=== PATIENT | male | born 1975 | race Caucasian/White ===

== ENCOUNTER 2016-09-29 19:31 | Observation (INO) | payer MEDICARE ==
[2016-09-29 19:31] VITALS: BMI 209.6
[2016-09-29] MEDS ORDERED: Sodium Chloride 0.9% 1,000 ML IV STA (21:29)
--- NOTE | 2016-09-29 21:51 | ED PDOC ---
HPI: Headache Time Seen by Provider: 09/29/16 20:47 Chief Complaint (Nursing): Fever Chief Complaint (Provider): headache History Per: Patient History/Exam Limitations: no limitations Onset/Duration Of Symptoms: Days (x 3) Current Symptoms Are (Timing): Still Present Additional Complaint(s): Qian Cortez is a 40 year old male, with a previous medical history of cardiac stents and HIV, who presents to the ED with complaints of a headache associated with chest pain ongoing for the past 3 days secondary to injecting crystal meth. Patient reports to also doing cocaine a week ago. Patient [place] [facility] [place] he was placed in a psych unit after being angry with his mother then discharged. Patient denies any fever, chills, neck stiffness, shortness of breath, suicidal or homicidal ideation. Patient reports CD4 levels were 1200. PMD: Rhina Salamanca MD Past Medical History Reviewed: Historical Data, Nursing Documentation, Vital Signs Vital Signs: Last Vital Signs Temp 98.2 F 09/29/16 19:39 Pulse 121 H 09/29/16 19:39 Resp 16 09/29/16 19:39 BP 136/94 H 09/29/16 19:39 Pulse Ox 100 09/29/16 19:39 - Medical History PMH: Anxiety, Bipolar Disorder, CAD, Depression, HIV, HTN, Hypercholesterolemia , Post Traumatic Stress Disorder Denies: Diabetes, Hepatitis, Chronic Kidney Disease, Seizures, Sexually Transmitted Disease - Surgical History Surgical History: Coronary Stent (x3) Denies: Pacemaker - Family History Family History: States: Unknown Family Hx - Social History Drugs: Cannabis, Cocaine, Methamphetamine - Immunization History Hx Tetanus Toxoid Vaccination: No Hx Influenza Vaccination: No Hx Pneumococcal Vaccination: No - Home Medications Home Medications: Ambulatory Orders Medication Instructions Recorded Aspirin [Ecotrin] 81 mg PO DAILY 07/06/15 Atorvastatin [Lipitor] 40 mg PO DAILY 07/06/15 Emtricita/Rilpivirine/Tenof Df 1 tab PO DAILY 07/06/15 [Complera Tablet] Escitalopram [Lexapro] 10 mg PO DAILY #30 tab 09/30/16 - Allergies Allergies/Adverse Reactions: Allergies Allergy/AdvReac Type Severity Reaction Status Date / Time No Known Allergies Allergy Verified 09/29/16 19:39 Review of Systems ROS Statement: Except As Marked, All Systems Reviewed And Found Negative Constitutional: Negative for: Fever, Chills Cardiovascular: Positive for: Chest Pain Respiratory: Negative for: Shortness of Breath Musculoskeletal: Negative for: Neck Pain Neurological: Positive for: Headache Physical Exam - Reviewed Nursing Documentation Reviewed: Yes Vital Signs Reviewed: Yes - Physical Exam Appears: Positive for: Well, Non-toxic, No Acute Distress Head Exam: Positive for: ATRAUMATIC, NORMAL INSPECTION, NORMOCEPHALIC Skin: Positive for: Normal Color, Warm, DRY Eye Exam: Positive for: EOMI, Normal appearance, PERRL ENT: Positive for: Normal ENT Inspection Neck: Positive for: Normal, Painless ROM Cardiovascular/Chest: Positive for: Regular Rate, Rhythm, Tachycardia Respiratory: Positive for: CNT, Normal Breath Sounds Gastrointestinal/Abdominal: Positive for: Normal Exam, Bowel Sounds, Soft Back: Positive for: Normal Inspection Extremity: Positive for: Normal ROM Neurologic/Psych: Positive for: Alert, Oriented - Laboratory Results Result Diagrams: 09/29/16 21:40 09/29/16 21:40 - ECG Interpretation Of ECG: NSR @ 75, short NV, no ST-T changes. O2 Sat by Pulse Oximetry: 100 (RA) Pulse Ox Interpretation: Normal - Radiology X-Ray: Read By Radiologist X-Ray Interpretation: No Acute Disease - CT Scan/US CT head Other Rad Studies (CT/US): Radiology Report Reviewed (No acute intracranial abnormality.) Medical Decision Making Medical Decision Making: Initial Impression: headache and chest pain Initial Plan: * CT head w/o contrast * EKG * acetaminophen * alcohol serum * urine drug screen * slicylate * troponin I * urine dipstick * partial thromboplastin time * prothrombin time * CXR * IV NS 1,000 ml at 1,000 ml/hr * urinalysis * reevaluation Scribe Attestation: Documented by Akosua Shine, acting as a scribe for Blaine Hernandez MD. Provider Scribe Attestation: All medical record entries made by the Scribe were at my direction and personally dictated by me. I have reviewed the chart and agree that the record accurately reflects my personal performance of the history, physical exam, medical decision making, and the department course for this patient. I have also personally directed, reviewed, and agree with the discharge instructions and disposition. Disposition - Clinical Impression Clinical Impression: Chest pain - Disposition Disposition Time: 22:51 Condition: STABLE - Pt Status Changed To: Hospital Disposition Of: Observation - POA Present On Arrival: None
[2016-09-29 21:54] LABS: BASO # 0.1 K/uL (0.0-0.2); BASO % 0.9 % (0.0-2.0); EOS # 0.2 K/uL (0.0-0.7); EOS % 2.3 % (0.0-4.0); HEMATOCRIT 45.2 % (35.0-51.0); LYMPH # 3.3 K/uL (1.0-4.3); LYMPH % 36.2 % (20.0-40.0); MEAN CELL VOLUME 92.9 fl (80.0-94.0); MEAN CORPUSCULAR HEMOGLOBIN 31.8 pg (27.0-31.0); MEAN CORPUSCULAR HGB CONC 34.3 g/dL (33.0-37.0); MEAN PLATELET VOLUME 8.9 fl (7.2-11.7); MONO # 0.8 K/uL (0.0-0.8); NEUT # 4.7 K/uL (1.8-7.0); NEUT % 51.6 % (50.0-75.0); NRBC % 0.1 % (0.0-0.0); RED CELL DISTRIBUTION WIDTH 13.5 % (11.5-14.5); WHITE BLOOD COUNT 9.2 K/uL (4.8-10.8)
[2016-09-29 22:09] LABS: PARTIAL THROMBOPLASTIN TIME 27.9 SECONDS (23.3-32.5)
[2016-09-29] MEDS ORDERED: Nitroglycerin 2% 15 INCH/30 GM TUBE TOP STA (22:16)
[2016-09-29 22:18] LABS: ALB/GLOB RATIO 1.5 (1.0-2.1); ALCOHOL SERUM < 10 mg/dl (0-10); ALKALINE PHOSPHATASE 55 U/L (38-126); ALT/SGPT 49 U/L (21-72); AST/SGOT 94 U/L (17-59); BILIRUBIN,TOTAL 2.4 mg/dl (0.2-1.3); BLOOD UREA NITROGEN 30 mg/dl (9-20); CALCIUM 9.6 mg/dL (8.4-10.2); CARBON DIOXIDE 20 mmol/L (22-30); CHLORIDE 101 mmol/L (98-107); GFR AFRICAN-AMERICAN > 60; GLUCOSE,RANDOM 80 mg/dL (75-110); POTASSIUM 4.3 MMOL/L (3.6-5.0); SODIUM 135 mmol/l (132-148); TOTAL PROTEIN 8.8 G/DL (6.3-8.2)
[2016-09-29 22:51] LABS: RBC URINE 10 /hpf (0-3); URINE BACTERIA RARE (<OCC); URINE BILIRUBIN NEGATIVE (NEGATIVE); URINE BLOOD NEGATIVE (NEGATIVE); URINE COLOR YELLOW (YELLOW); URINE GLUCOSE (UA) NEG (Normal); URINE KETONE 20 mg/dL (NEGATIVE); URINE LEUKOCYTE ESTERASE NEG Leu/uL (Negative); URINE PROTEIN 30 mg/dL (NEGATIVE); URINE UROBILINOGEN 0.2-1.0 mg/dL (0.2-1.0); WBC URINE 1 /hpf (0-5)
--- NOTE | 2016-09-29 23:01 | CT ---
EXAM: CT Head Without Intravenous Contrast CLINICAL HISTORY: 40 years old, male; Pain; Headache; Headache not specified; Additional info: SKYEzra Justice phy. Doc. With request TECHNIQUE: Axial computed tomography images of the head/brain without intravenous contrast. This CT exam was performed using one or more of the following dose reduction techniques: automated exposure control, adjustment of the mA and/or kV according to patient size, and/or use of iterative reconstruction technique. Coronal and sagittal reformatted images were created and reviewed. EXAM DATE/TIME: 09/29/2016 9:29 PM COMPARISON: There are no prior studies for comparison. FINDINGS: Brain: Ventricles are normal in size and configuration. There is no midline shift. There is mild prominence of sulci and gyri. There are no intra-axial or extra-axial mass lesions or areas of hemorrhage. There are no abnormal fluid collections. Veloz-white differentiation is maintained. Ventricles: See above. Bones: Cranial vault is intact. Soft tissues: unremarkable Sinuses: There is no acute sinusitis. Ears and mastoids: Middle ears and mastoids are unremarkable Orbits: Orbital contents are unremarkable. IMPRESSION: No acute intracranial abnormality
--- NOTE | 2016-09-29 23:27 | CP.PCM.HP ---
History of Present Illness - History of Present Illness History of Present Illness: Pt is a 40 year old male, with medical history of cardiac stents and HIV, who presents to the ED with complaints of a headache associated with chest pain ongoing for the past 3 days secondary to injecting crystal meth. Patient reports to also doing cocaine a week ago. Patient reports being seen [place] [facility] [place] where he was placed in a psych unit after being angry with his mother then discharged.Pt reports no labs where done at [facility] and he was not satisfied with their workup so decided to come to [place] for further management. Patient denies any fever, chills, neck stiffness, shortness of breath, suicidal or homicidal ideation. Patient reports CD4 levels were 1200; however on 09/15 HIV 1 RNS PCR was undetectable per chart review PCP- Dr. Nye Present on Admission - Present on Admission Any Indicators Present on Admission: No Review of Systems - Review of Systems All systems: reviewed and no additional remarkable complaints except Review of Systems: per HPI Past Patient History - Infectious Disease Hx of Infectious Diseases: None - Tetanus Immunizations Tetanus Immunization: Unknown - Past Social History Drugs: Cannabis, Cocaine, Methamphetamine - CARDIAC Hx Hypercholesterolemia: Yes Hx Hypertension: Yes Hx Pacemaker: No - PULMONARY Hx Tuberculosis: No - NEUROLOGICAL Hx Seizures: No - HEENT Hx HEENT Problems: No - RENAL Hx Chronic Kidney Disease: No - ENDOCRINE/METABOLIC Hx Endocrine Disorders: No - HEMATOLOGICAL/ONCOLOGICAL Hx Human Immunodeficiency Virus (HIV): Yes - INTEGUMENTARY Other/Comment: herpes - MUSCULOSKELETAL/RHEUMATOLOGICAL Hx Musculoskeletal Disorders: Yes Hx Back Pain: Yes Hx Falls: Yes Hx Herniated Disk: Yes Other/Comment: PINCHED NERVE - GASTROINTESTINAL Hx Gastrointestinal Disorders: No - GENITOURINARY/GYNECOLOGICAL Hx Sexually Transmitted Disorders: No - PSYCHIATRIC Hx Anxiety: Yes Hx Bipolar Disorder: Yes Hx Depression: Yes Hx Post Traumatic Stress Disorder: Yes - SURGICAL HISTORY Hx Coronary Stent: Yes (x3) - ANESTHESIA Hx Anesthesia: Yes Hx Anesthesia Reactions: No Hx Malignant Hyperthermia: No Meds Allergies/Adverse Reactions: Allergies Allergy/AdvReac Type Severity Reaction Status Date / Time No Known Allergies Allergy Verified 09/29/16 19:39 Physical Exam - Constitutional Appears: Non-toxic, No Acute Distress - Head Exam Head Exam: NORMOCEPHALIC - Eye Exam Eye Exam: Normal appearance, PERRL Pupil Exam: NORMAL ACCOMODATION - ENT Exam ENT Exam: Mucous Membranes Moist - Respiratory Exam Respiratory Exam: Clear to Auscultation Bilateral, NORMAL BREATHING PATTERN. absent: Rhonchi, Wheezes - Cardiovascular Exam Cardiovascular Exam: REGULAR RHYTHM, +S1, +S2 - GI/Abdominal Exam GI & Abdominal Exam: Normal Bowel Sounds, Soft. absent: Tenderness - Extremities Exam Extremities exam: Negative for: calf tenderness, pedal edema - Neurological Exam Neurological exam: Alert, CN II-XII Intact, Oriented x3 - Skin Skin Exam: Normal Color Results - Vital Signs Recent Vital Signs: Last Vital Signs Temp 98.2 F 09/29/16 19:39 Pulse 121 H 09/29/16 19:39 Resp 16 09/29/16 19:39 BP 136/94 H 09/29/16 19:39 Pulse Ox 100 09/29/16 22:25 - Labs Result Diagrams: 09/29/16 21:40 09/29/16 21:40 Labs: Laboratory Results - last 24 hr 09/29/16 09/29/16 09/29/16 21:40 21:40 21:40 WBC 9.2 RBC 4.87 Hgb 15.5 Hct 45.2 MCV 92.9 D MCH 31.8 H MCHC 34.3 RDW 13.5 Plt Count 232 MPV 8.9 Neut % (Auto) 51.6 Lymph % (Auto) 36.2 Ness % (Auto) 9.0 Eos % (Auto) 2.3 Baso % (Auto) 0.9 Neut # 4.7 Lymph # 3.3 Ness # 0.8 Eos # 0.2 Baso # 0.1 PT 12.0 H INR 1.15 H APTT 27.9 Sodium 135 Potassium 4.3 Chloride 101 Carbon Dioxide 20 L Anion Gap 18 BUN 30 H Creatinine 1.0 Est GFR ( Amer) > 60 Est GFR (Non-Af Amer) > 60 Random Glucose 80 Calcium 9.6 Total Bilirubin 2.4 H AST 94 H D ALT 49 Alkaline Phosphatase 55 Troponin I 0.0190 Total Protein 8.8 H Albumin 5.3 H Globulin 3.5 Albumin/Globulin Ratio 1.5 Urine Color Urine Clarity Urine pH Ur Specific [place] Urine Protein Urine Glucose (UA) Urine Ketones Urine Blood Urine Nitrate Urine Bilirubin Urine Urobilinogen Ur Leukocyte Esterase Urine RBC (Auto) Urine Microscopic WBC Ur Squamous Epith Cells Urine Bacteria Salicylates Urine Opiates Screen Urine Methadone Screen Acetaminophen Ur Barbiturates Screen Ur Phencyclidine Scrn Ur Amphetamines Screen U Benzodiazepines Scrn U Oth Cocaine Metabols U Cannabinoids Screen Alcohol, Quantitative < 10 09/29/16 09/29/16 09/29/16 21:40 22:32 22:40 WBC RBC Hgb Hct MCV MCH MCHC RDW Plt Count MPV Neut % (Auto) Lymph % (Auto) Ness % (Auto) Eos % (Auto) Baso % (Auto) Neut # Lymph # Ness # Eos # Baso # PT INR APTT Sodium Potassium Chloride Carbon Dioxide Anion Gap BUN Creatinine Est GFR ( Amer) Est GFR (Non-Af Amer) Random Glucose Calcium Total Bilirubin AST ALT Alkaline Phosphatase Troponin I Total Protein Albumin Globulin Albumin/Globulin Ratio Urine Color Yellow Urine Clarity Clear Urine pH 6.0 Ur Specific [place] 1.031 H Urine Protein 30 Urine Glucose (UA) Neg Urine Ketones 20 Urine Blood Negative Urine Nitrate Negative Urine Bilirubin Negative Urine Urobilinogen 0.2-1.0 Ur Leukocyte Esterase Neg Urine RBC (Auto) 10 H Urine Microscopic WBC 1 Ur Squamous Epith Cells < 1 Urine Bacteria Rare Salicylates < 1.0 Urine Opiates Screen Negative Urine Methadone Screen Negative Acetaminophen < 10.0 L Ur Barbiturates Screen Negative Ur Phencyclidine Scrn Negative Ur Amphetamines Screen Positive H U Benzodiazepines Scrn Positive H U Oth Cocaine Metabols Negative U Cannabinoids Screen Positive H Alcohol, Quantitative Assessment & Plan - Assessment and Plan (Free Text) Assessment: 40 y/o male with history of cardiac stents and HIV being admitted for chest pain induced by drug use; rule out ACS Plan: Chest pain r/o ACS f/u trops X2 F/u repeat EKG in the morning Pt already on aspirin monitor HIV Home medication resumed, not formulary but pt has it with him Consider obtaining Cd4 count if pt is not discharged in the morning Monitor Home meds resumed Diet - Heart Healthy DVT prophylaxis- Lovenox 40mg SC
--- NOTE | 2016-09-30 08:36 | CARD ---
APPROVED REPORT EKG Measurement Heart [id number] ID [id number] <Conclusion> Sinus rhythm with sinus arrhythmia with short ID Otherwise normal ECG
[2016-09-30] MEDS ORDERED: Enoxaparin 40 mg Syringe SC SCH (09:00)
[2016-09-30] MEDS ORDERED: TENOF DF PO SCH (09:00)
[2016-09-30] MEDS ORDERED: EMTRICITA PO SCH (09:00)
[2016-09-30] MEDS ORDERED: RILPIVIRINE PO SCH (09:00)
[2016-09-30] MEDS ORDERED: Lidocaine 5% Patch TD SCH (09:15)
--- NOTE | 2016-09-30 10:47 | RAD ---
HISTORY: CP COMPARISON: No prior. FINDINGS: LUNGS: No active pulmonary disease. PLEURA: No significant pleural effusion identified, no pneumothorax apparent. CARDIOVASCULAR: Normal. OSSEOUS STRUCTURES: No significant abnormalities. VISUALIZED UPPER ABDOMEN: Normal. OTHER FINDINGS: None. IMPRESSION: No active disease.
--- NOTE | 2016-09-30 13:34 | CP.PCM.CON ---
History of Present Illness - History of Present Illness History of Present Illness: Psychiary consult for anxiety and "anger problems" CC: "I get depressed" HPI: 40 yo male w/ h/o HIV, MN, HTN, admitted to medicine for evaluation of headache and chest pain in the context of methamphetamine use, also reports a history of depression and anxiety. +Intermittent feelings of depression and anxiety. He states that his methamphetamine use is under control and doesn't believe he is addicted to it. He denies AH/VH/SI/HI/paranoia/delusions/giuseppe. He reports that Lexapro has been helpful for him in the past and he is interested in restarting this medication. Patient counseled on how substance abuse can affect his mood and cause psychotic symptoms. He reports "anger problems" stating he goes from 0 - 10 quickly for unknown reason, when asked if this could be related to his methamphetamine use, he did not think so. Past psych: Several admissions, diagnosed with depression vs bipolar II disorder in the past. 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 Rents a room, but was recently locked out of that, so likely homeless. +Marijuana, +Methamphetamine abuse. Denies frequent ETOH use. On SSD for HIV. from his in 2009, no children. MSE: A + O x 3, calm, cooperative, good eye contact, thought process-linear/ coherent, thought content- no delusions, no ah/vh/si/si. mood "depressed", affect- broad/full range, able to brighten and laugh. poor insight/judgment. fair impulse control. Impression: 40 yo male w/ h/o HIV, MN, HTN, admitted to medicine for evaluation of headache and chest pain in the context of methamphetamine use, also reports a history of depression and anxiety, now reporting depressed mood and anxiety due to his many social stressors including lack of home. Patient has poor insight into his substance abuse. Dx: Mood disorder unspecified, r/o substance induced mood disorder; Methamphetamine/Marijuana/Benzodiazepine Abuse. -Start Lexapro 10 mg PO Daily -Outpatient psychiatric follow-up -No acute inpatient psychiatric admission indicated at this time -Patient may be going from hospital to hospital for the secondary gain of housing Past Patient History - Infectious Disease Hx of Infectious Diseases: None - Tetanus Immunizations Tetanus Immunization: Unknown - Past Social History Drugs: Cannabis, Cocaine, Methamphetamine - CARDIAC Hx Hypercholesterolemia: Yes Hx Hypertension: Yes Hx Pacemaker: No - PULMONARY Hx Tuberculosis: No - NEUROLOGICAL Hx Seizures: No - HEENT Hx HEENT Problems: No - RENAL Hx Chronic Kidney Disease: No - ENDOCRINE/METABOLIC Hx Endocrine Disorders: No - HEMATOLOGICAL/ONCOLOGICAL Hx Human Immunodeficiency Virus (HIV): Yes - INTEGUMENTARY Other/Comment: herpes - MUSCULOSKELETAL/RHEUMATOLOGICAL Hx Musculoskeletal Disorders: Yes Hx Back Pain: Yes Hx Falls: Yes Hx Herniated Disk: Yes Other/Comment: PINCHED NERVE - GASTROINTESTINAL Hx Gastrointestinal Disorders: No - GENITOURINARY/GYNECOLOGICAL Hx Sexually Transmitted Disorders: No - PSYCHIATRIC Hx Anxiety: Yes Hx Bipolar Disorder: Yes Hx Depression: Yes Hx Post Traumatic Stress Disorder: Yes - SURGICAL HISTORY Hx Coronary Stent: Yes (x3) - ANESTHESIA Hx Anesthesia: Yes Hx Anesthesia Reactions: No Hx Malignant Hyperthermia: No Meds Allergies/Adverse Reactions: Allergies Allergy/AdvReac Type Severity Reaction Status Date / Time No Known Allergies Allergy Verified 09/29/16 19:39 - Medications Medications: Current Medications Aspirin (Ecotrin) 81 mg PO DAILY@2230 [facility] Atorvastatin Calcium (Lipitor) 40 mg PO DAILY [facility] Last Admin: 09/30/16 09:35 Dose: 40 mg Enoxaparin Sodium (Lovenox) 40 mg SC DAILY [facility] PRN Reason: Protocol Last Admin: 09/30/16 09:36 Dose: 40 mg Home Med (Emtricita/Rilpivirine/Tenof Df [Complera Tablet]) 1 tab PO DAILY [facility] Last Admin: 09/30/16 09:36 Dose: 1 tab Lidocaine (Lidoderm) 1 ea TD DAILY [facility] Last Admin: 09/30/16 09:38 Dose: 1 ea Results - Vital Signs Recent Vital Signs: Last Vital Signs Temp 97.8 F 09/30/16 07:25 Pulse 84 09/30/16 07:25 Resp 18 09/30/16 07:25 BP 118/61 09/30/16 07:25 Pulse Ox 97 09/30/16 07:25 - Labs Result Diagrams: 09/29/16 21:40 09/29/16 21:40 Labs: Laboratory Results - last 24 hr 09/30/16 07:25 Troponin I < 0.0120
[2016-09-30 13:55] VITALS: TEMP 98
--- NOTE | 2016-09-30 16:28 | CP.PCM.PN ---
Subjective - Date & Time of Evaluation Date of Evaluation: 09/30/16 Time of Evaluation: 09:10 - Subjective Subjective: Patient sitting upright in bed. Reports feeling much better but somewhat anxious. Chest pain symptoms have resolved. Denies dizziness, dyspnea, nausea, vomiting, abdominal pain, pedal edema. Objective - Vital Signs/Intake and Output Vital Signs (last 24 hours): Temp Pulse Resp BP Pulse Ox 98.0 F 80 20 101/56 L 97 09/30/16 13:30 09/30/16 13:30 09/30/16 13:30 09/30/16 13:30 09/30/16 13:30 - Medications Medications: Current Medications Aspirin (Ecotrin) 81 mg PO DAILY@0 [facility] Atorvastatin Calcium (Lipitor) 40 mg PO DAILY [facility] Last Admin: 09/30/16 09:35 Dose: 40 mg Enoxaparin Sodium (Lovenox) 40 mg SC DAILY [facility] PRN Reason: Protocol Last Admin: 09/30/16 09:36 Dose: 40 mg Home Med (Emtricita/Rilpivirine/Tenof Df [Complera Tablet]) 1 tab PO DAILY [facility] Last Admin: 09/30/16 09:36 Dose: 1 tab Lidocaine (Lidoderm) 1 ea TD DAILY [facility] Last Admin: 09/30/16 09:38 Dose: 1 ea - Labs Labs: PT 12.0 SECONDS (9.6-11.2) H 09/29/16 21:40 INR 1.15 (0.92-1.08) H 09/29/16 21:40 APTT 27.9 SECONDS (23.3-32.5) 09/29/16 21:40 - Constitutional Appears: No Acute Distress (anxious) - Head Exam Head Exam: NORMAL INSPECTION - Eye Exam Eye Exam: EOMI, Normal appearance - ENT Exam ENT Exam: Mucous Membranes Moist - Neck Exam Neck Exam: Full ROM - Respiratory Exam Respiratory Exam: NORMAL BREATHING PATTERN - Cardiovascular Exam Cardiovascular Exam: REGULAR RHYTHM - GI/Abdominal Exam GI & Abdominal Exam: Soft, Normal Bowel Sounds. absent: Tenderness - Extremities Exam Extremities Exam: absent: Pedal Edema - Neurological Exam Neurological Exam: Alert, Awake, CN II-XII Intact Assessment and Plan - Assessment and Plan (Free Text) Assessment: Assessment: 40 y/o male with history of cardiac stents and HIV being admitted for chest pain likely secondary to drug use, rule out ACS. ACS ruled out, patient seen by psych, recommend outpatient follow up for psychiatric history and started pt on Lexapro 10mg. No indication for inpatient admission as patient is stable. Will discharge home. Plan: ACS - ruled out, troponins negative x 2. -continue asa -chest pain resolved. HIV Home medication resumed, not formulary but pt has it with him Patient to follow up with Dr. Nye October 05, 2016. Diet - Heart Healthy DVT prophylaxis- Lovenox 40mg SC
[2016-09-30 17:48] VITALS: BP 110/60; PULSE 82; RESP 18
[2016-10-01 10:12] VITALS: O2SAT 100
== END 2016-09-30 17:45 | disposition home or self-care (01) ==
LOC: H.ER 19:31 → H.ERHOLD 22:51
PROVIDERS: ADMIT Family Medicine Geriatric Medicine; ATTEND Family Medicine Geriatric Medicine
DX: R07.89 Other chest pain (principal); I25.10 Atherosclerotic heart disease of native coronary artery without angina pectoris; I10 Essential (primary) hypertension; Z21 Asymptomatic human immunodeficiency virus [HIV] infection status; E78.00 Pure hypercholesterolemia, unspecified; F15.10 Other stimulant abuse, uncomplicated; F12.10 Cannabis abuse, uncomplicated; F41.9 Anxiety disorder, unspecified; I25.2 Old myocardial infarction; F31.9 Bipolar disorder, unspecified; F43.10 Post-traumatic stress disorder, unspecified; Z87.820 Personal history of traumatic brain injury; Z95.5 Presence of coronary angioplasty implant and graft; Z79.82 Long term (current) use of aspirin; Z59.0 Homelessness
CPT/HCPCS: 70450; 71010; 80053; 81003; 84484; 85025; 85610; 85730; 93005; 96360; 96372; 99285; G0378; G0480; J1650; J7040